=== PATIENT | male | born 1945 | race Caucasian/White ===

== ENCOUNTER 2019-02-09 15:58 | Emergency (ER) | payer MEDICARE ==
--- NOTE | 2019-02-09 16:12 | NUR ---
PT BIBWIFE FOR RT FOOT INJURY S/P FALL; PT AAOX4, PT TO BED 4, -SOB, NAD NOTED, VSS, PENDING MD WHALEN
[2019-02-09] MEDS ORDERED: CLINDAMYCIN 900 MG in IV D5W 50 ML IV ONE (16:30)
[2019-02-09] MEDS ORDERED: TDAP [DIPH/PERTUSSIS/TET] 0.5 ML VIAL IM ONE ×2 (16:30→18:19)
[2019-02-09 16:42] LABS: BASOPHILS % (AUTO) 0.5 % (0.0-2.0); EOSINOPHILS % (AUTO) 1.3 % (0.0-6.0); HEMATOCRIT 47 % (39-51); LYMPHOCYTES # (AUTO) 1.5 /CMM (0.8-4.8); LYMPHOCYTES % (AUTO) 16.9 % (20.0-44.0); MEAN CORPUSCULAR HGB CONC 34 g/dl (31.0-36.0); MEAN CORPUSCULAR VOLUME 96 fL (80-96); MONOCYTES # (AUTO) 0.8 /CMM (0.1-1.30); MONOCYTES % (AUTO) 8.8 % (2.0-12.0); NEUTROPHILS # (AUTO) 6.6 /CMM (1.8-8.9); NEUTROPHILS % (AUTO) 72.5 % (43.0-81.0); PLATELET COUNT (AUTO) 173 /CMM (150-450); RED BLOOD CELL COUNT(AUTO) 4.91 MIL/uL (4.5-6.0); WHITE BLOOD COUNT (AUTO) 9.1 K/uL (4.3-11.0)
[2019-02-09 16:51] LABS: CALCIUM, SERUM 9.5 mg/dL (8.5-10.1); CARBON DIOXIDE 30 mmol/L (21-32); CHLORIDE 105 mmol/L (98-107); CREATININE 0.9 mg/dL (0.6-1.3); GLUCOSE 101 mg/dL (74-106); POTASSIUM 3.9 mmol/L (3.5-5.1); SODIUM SERUM 141 mmol/L (136-145); UREA NITROGEN, BLOOD 15 mg/dL (7-18)
--- NOTE | 2019-02-09 17:24 | NUR ---
CALLED [facility] SE[employer] CUTTER WAS PAGED.
[2019-02-09 21:49] VITALS: BP 122/67
== END 2019-02-09 21:51 | disposition home or self-care (01) ==
LOC: ER 16:10
DX: S92.491A Other fracture of right great toe, initial encounter for closed fracture (principal); S80.211A Abrasion, right knee, initial encounter; I10 Essential (primary) hypertension; L40.9 Psoriasis, unspecified; Z88.0 Allergy status to penicillin; W01.198A Fall on same level from slipping, tripping and stumbling with subsequent striking against other object, initial encounter; Y93.89 Activity, other specified; Y92.89 Other specified places as the place of occurrence of the external cause; Y99.8 Other external cause status
CPT/HCPCS: 28495; 36415; 73564; 73630; 73660; 80048; 85025; 85730; 90471; 90715; 96365; 99284; A6403 ×3; J3490; J7030; J7050; J7060

== ENCOUNTER 2019-02-14 09:10 | Outpatient (CLI) | payer MEDICARE | END 2019-02-14 23:59 | disposition home or self-care (01) | LOC: WOU 09:10 | PROVIDERS: ATTEND Podiatrist Foot & Ankle Surgery | DX: S91.111D Laceration without foreign body of right great toe without damage to nail, subsequent encounter (principal); S81.011D Laceration without foreign body, right knee, subsequent encounter; S60.011D Contusion of right thumb without damage to nail, subsequent encounter; W18.09XD Striking against other object with subsequent fall, subsequent encounter; I10 Essential (primary) hypertension | CPT/HCPCS: A6402; G0463 ==

== ENCOUNTER 2019-02-21 13:58 | Outpatient (CLI) | payer MEDICARE | END 2019-02-21 23:59 | disposition home or self-care (01) | LOC: WOU 13:58 | PROVIDERS: ATTEND Surgery | DX: J34.0 Abscess, furuncle and carbuncle of nose (principal); S91.311D Laceration without foreign body, right foot, subsequent encounter; S81.811D Laceration without foreign body, right lower leg, subsequent encounter; W18.39XD Other fall on same level, subsequent encounter; I10 Essential (primary) hypertension | CPT/HCPCS: 11042; 73140; A6402 ==

== ENCOUNTER 2019-02-24 09:40 | Outpatient (CLI) | payer MEDICARE | END 2019-02-24 23:59 | disposition home or self-care (01) | LOC: WOU 09:40 | PROVIDERS: ATTEND Podiatrist Foot & Ankle Surgery | DX: S91.111D Laceration without foreign body of right great toe without damage to nail, subsequent encounter (principal); S81.011D Laceration without foreign body, right knee, subsequent encounter; W01.0XXD Fall on same level from slipping, tripping and stumbling without subsequent striking against object, subsequent encounter | CPT/HCPCS: A6402; G0463 ==

== ENCOUNTER 2019-02-28 13:16 | Outpatient (CLI) | payer MEDICARE | END 2019-02-28 23:59 | disposition home or self-care (01) | LOC: WOU 13:16 | PROVIDERS: ATTEND Surgery | DX: S62.521D Displaced fracture of distal phalanx of right thumb, subsequent encounter for fracture with routine healing (principal); S91.311D Laceration without foreign body, right foot, subsequent encounter; S81.811D Laceration without foreign body, right lower leg, subsequent encounter; W18.39XD Other fall on same level, subsequent encounter; R52 Pain, unspecified | CPT/HCPCS: G0463 ==

== ENCOUNTER 2019-03-14 13:21 | Outpatient (CLI) | payer MEDICARE | END 2019-03-14 23:59 | disposition home or self-care (01) | LOC: WOU 13:21 | PROVIDERS: ATTEND Surgery | DX: S62.521D Displaced fracture of distal phalanx of right thumb, subsequent encounter for fracture with routine healing (principal); W18.09XD Striking against other object with subsequent fall, subsequent encounter; J34.0 Abscess, furuncle and carbuncle of nose; S91.311D Laceration without foreign body, right foot, subsequent encounter | CPT/HCPCS: G0463 ==

== ENCOUNTER 2019-03-28 08:40 | Outpatient (CLI) | payer MEDICARE | END 2019-03-28 23:59 | disposition home or self-care (01) | LOC: RAD 08:40 | PROVIDERS: ATTEND Surgery | DX: S62.521D Displaced fracture of distal phalanx of right thumb, subsequent encounter for fracture with routine healing (principal); M18.11 Unilateral primary osteoarthritis of first carpometacarpal joint, right hand; I10 Essential (primary) hypertension; X58.XXXD Exposure to other specified factors, subsequent encounter | CPT/HCPCS: 73140-TC ==

== ENCOUNTER 2019-03-28 12:45 | Outpatient (CLI) | payer MEDICARE | END 2019-03-28 23:59 | disposition home or self-care (01) | DX: S62.521D Displaced fracture of distal phalanx of right thumb, subsequent encounter for fracture with routine healing (principal); W18.09XD Striking against other object with subsequent fall, subsequent encounter; J34.0 Abscess, furuncle and carbuncle of nose; S91.311D Laceration without foreign body, right foot, subsequent encounter; R52 Pain, unspecified ==

== ENCOUNTER 2019-04-18 13:15 | Outpatient (CLI) | payer MEDICARE | END 2019-04-18 23:59 | disposition home or self-care (01) | LOC: WOU 13:15 | PROVIDERS: ATTEND Surgery | DX: S62.521D Displaced fracture of distal phalanx of right thumb, subsequent encounter for fracture with routine healing (principal); W18.49XD Other slipping, tripping and stumbling without falling, subsequent encounter; S91.311D Laceration without foreign body, right foot, subsequent encounter; S81.811D Laceration without foreign body, right lower leg, subsequent encounter; J34.0 Abscess, furuncle and carbuncle of nose; R52 Pain, unspecified | CPT/HCPCS: G0463 ==